=== PATIENT | female | born 1980 | race Caucasian/White ===

== ENCOUNTER 2021-04-02 07:30 | Inpatient (IN) | payer OTHER ==
[~2021-04-02] VITALS: Ht 167.6 cm; Wt 73.9 kg
[2021-04-02] MEDS ORDERED: FOLIVANE-OB CA1 EACH PO (10:14)
[2021-04-02] MEDS ORDERED: Synthroid200 MCG PO (10:15)
[2021-04-02 10:56] LABS: BASOPHILS ABSOLUTE AUTO 0.06 K/mm3 (0.00-0.23); BASOPHILS PERCENT AUTO 1 % (0-2); EOSINOPHILS ABSOLUTE AUTO 0.12 K/mm3 (0.00-0.68); EOSINOPHILS PERCENT AUTO 1 % (0-6); Hematocrit 38.2 % (33.0-51.0); Hemoglobin 12.9 g/dL (11.5-16.0); IMMATURE GRAN ABSOLUTE AUTO 0.12 K/mm3 (0.00-0.10); IMMATURE GRAN PERCENT AUTO 1 % (0-1); LYMPHOCYTES ABSOLUTE AUTO 0.86 K/mm3 (0.84-5.20); LYMPHOCYTES PERCENT AUTO 9 % (21-46); MONOCYTES ABSOLUTE AUTO 0.91 K/mm3 (0.16-1.47); MONOCYTES PERCENT AUTO 10 % (4-13); Mean Corpuscular HGB Conc 33.8 g/dL (31.5-36.5); Mean Corpuscular Volume 98 fL (80-100); Mean Platelet Volume 10.3 fL (9.1-12.4); NEUTROPHILS ABSOLUTE AUTO 7.39 K/mm3 (1.96-9.15); NEUTROPHILS PERCENT AUTO 78 % (41-73); Platelet Count 210 K/mm3 (150-400); RDW Coefficient Variation 14.2 % (11.7-14.2); RDW Standard Deviation 50.2 fL (35.1-46.3); Red Blood Cell Count 3.91 M/mm3 (3.80-5.20); White Blood Cell Count 9.46 K/mm3 (4.00-11.30)
[2021-04-02 11:42] LABS: SARS-Cov-2 (COVID-19) PCR, MMC NEGATIVE (NEGATIVE)
--- NOTE | 2021-04-02 13:36 | NUR ---
PT C/SECTION POSTPONED DUE TO SPINAL ANESTHESIA NOT SETTING UP, PT TO RECOVER IN PACU. WILL RE-ATTEMPT SURGERY 2-[address] HASSAN
--- NOTE | 2021-04-02 15:19 | NUR ---
04/02/21 1519 Justine Griggs 1315 PROCEDURE ABORTED SPINAL DID NOT SET UP WILL RE-ATTEMPTED C/S IN 2-3 HRS
--- NOTE | 2021-04-02 16:05 | NUR ---
04/02/21 1605 Justine Griggs 1540 PT ARRIVE TO OR WITH INFANTE INPLACE DRAINING CLEAR YEALLW URINE
[2021-04-02 16:28] LABS: PCO2 Cord - Arterial 53.5 mmHg (40-50); PO2 Cord - Arterial 19.6 mmHg (16-20); pH Cord - Arterial 7.31 (7.28-7.35)
[2021-04-02 16:29] LABS: PCO2 Cord - Venous 40.6 mmHg (40-50); PO2 Cord - Venous 31.9 mmHg (28-32); pH Umbilical Cord - Venous 7.39 (7.26-7.35)
--- NOTE | 2021-04-02 18:10 | NUR ---
PT TAKEN TO OR FOR SCHEDULED ELECTIVE AT 1249. SPINAL COMPLETED BY DR. HASSAN. SPINAL WAS NOT EFFICIENT TO PROCEED WITH PROCEDURE. TEAM AGREEMENT IT WAS BEST TO SEND PT TO PACU TO RECOVERY FULLY BEFORE ATTEMPTING PROCEDURE AGAIN. PT INTO PACU AT 1316 WITH KALEB WHITFIELD. PT BACK INTO ROOM #[id number] GASCA INTO SEE PT AT 1500 AND DETERMINED PT WELL RECOVERED AND READY FOR PROCEDURE. TEAM CALLED AND OR SET UP. PT TAKEN TO O9R AGAIN AT 1539 FOR SUCCESSFUL SECTION.
--- NOTE | 2021-04-03 01:21 | NUR ---
REPORT GIVEN TO DANIELLE MANUEL
[2021-04-03 06:07] LABS: BASOPHILS ABSOLUTE AUTO 0.06 K/mm3 (0.00-0.23); BASOPHILS PERCENT AUTO 1 % (0-2); EOSINOPHILS ABSOLUTE AUTO 0.12 K/mm3 (0.00-0.68); EOSINOPHILS PERCENT AUTO 1 % (0-6); Hematocrit 32.9 % (33.0-51.0); Hemoglobin 10.9 g/dL (11.5-16.0); IMMATURE GRAN ABSOLUTE AUTO 0.09 K/mm3 (0.00-0.10); IMMATURE GRAN PERCENT AUTO 1 % (0-1); LYMPHOCYTES ABSOLUTE AUTO 0.94 K/mm3 (0.84-5.20); LYMPHOCYTES PERCENT AUTO 9 % (21-46); MONOCYTES ABSOLUTE AUTO 1.14 K/mm3 (0.16-1.47); MONOCYTES PERCENT AUTO 11 % (4-13); Mean Corpuscular HGB 32.7 pg (26.0-34.0); Mean Corpuscular HGB Conc 33.1 g/dL (31.5-36.5); Mean Corpuscular Volume 99 fL (80-100); NEUTROPHILS ABSOLUTE AUTO 8.48 K/mm3 (1.96-9.15); NEUTROPHILS PERCENT AUTO 78 % (41-73); Platelet Count 201 K/mm3 (150-400); RDW Coefficient Variation 14.3 % (11.7-14.2); RDW Standard Deviation 51.8 fL (35.1-46.3); Red Blood Cell Count 3.33 M/mm3 (3.80-5.20); White Blood Cell Count 10.83 K/mm3 (4.00-11.30)
[2021-04-04] MEDS ORDERED: IBUP800 PO (12:30)
[2021-04-04] MEDS ORDERED: Norco 5-325 Ta1 EACH PO (12:30)
[2021-04-04] MEDS ORDERED: DOCU100 PO (12:30)
--- NOTE | 2021-04-04 14:17 | NUR ---
DISCHARGE INSTRUCTIONS, WRITTEN AND VERBAL, GIVEN TO PT ANS Gogo GOFF ANSWERED ALL QUESTIONS AND CONCERNS. COMPRESSION STALKINGS APPLIED TO PATIENT. FOLLOW UP APPOINTMENT SCHEDULED. WRITTEN PRESCIRPTION HANDED TO PATIENT FOR JEAN, FILLED BY [facility]. OTHER PRESCRIPTIONS CALLED INTO [facility], SPOKE TO PHARMACIST ALBARO. ALL PERSONAL BELONGINGS RETURNED. PT IS DISCHARGED HOME.
== END 2021-04-04 14:28 | disposition home or self-care (01) | DRG 788 ==
LOC: BC 07:30 → SURS 09:15 → BC 09:15
PROVIDERS: ADMIT Obstetrics & Gynecology
PROC: 10D00Z1 Extraction of Products of Conception, Low, Open Approach (ICD-10-PCS; principal; 2021-04-02 11:45)
DX: O34.211 Maternal care for low transverse scar from previous cesarean delivery (principal); N85.8 Other specified noninflammatory disorders of uterus; Z3A.40 40 weeks gestation of pregnancy; Z37.0 Single live birth; O48.0 Post-term pregnancy; Z91.040 Latex allergy status; O87.4 Varicose veins of lower extremity in the puerperium; O71.89 Other specified obstetric trauma
CPT/HCPCS: 36415; 82803; 85025; 86850; 86900; 86901; A9270; J0690; J1885; J2405; J2590; J2765; J3010; J7120; U0004